=== PATIENT | male | born 1985 | race Hispanic/Latino ===

== ENCOUNTER 2017-02-17 12:49 | Emergency (ER) | payer OTHER ==
[2017-02-17 13:21] VITALS: RESP 18; O2SAT 100
--- NOTE | 2017-02-17 13:43 | ED PDOC ---
HPI: General Adult Time Seen by Provider: 02/17/17 13:27 Chief Complaint (Nursing): Medical Clearance Chief Complaint (Provider): CO exposure History Per: Patient Additional Complaint(s): 31 year old male with no past medical history presents to emergency department for evaluation status post exposure to carbon monoxide. Patient states that his noticed a bizarre odor in his home last night. He contacted electrical company and they came to home and detected carbon monoxide. The source of the CO was located and turned off. Patient was advised to come to ED for further evaluation. Patient has no acute medical complaint at this time. Past Medical History Reviewed: Historical Data, Nursing Documentation, Vital Signs Vital Signs: Last Vital Signs Temp 97.4 F L 02/17/17 16:00 Pulse 62 02/17/17 16:00 Resp 18 02/17/17 16:00 BP 123/77 02/17/17 16:00 Pulse Ox 100 02/17/17 16:00 - Medical History PMH: No Chronic Diseases - Surgical History Surgical History: No Surg Hx - Family History Family History: States: No Known Family Hx - Living Arrangements Living Arrangements: With Family - Social History Current smoker - smoking cessation education provided: No Alcohol: None Drugs: Denies - Allergies Allergies/Adverse Reactions: Allergies Allergy/AdvReac Type Severity Reaction Status Date / Time No Known Allergies Allergy Verified 02/17/17 13:18 Review of Systems ROS Statement: Except As Marked, All Systems Reviewed And Found Negative Constitutional: Positive for: Other (exposure to CO) Eyes: Negative for: Vision Change Cardiovascular: Negative for: Chest Pain Respiratory: Negative for: Shortness of Breath, SOB with Exertion Neurological: Negative for: Headache, Dizziness Physical Exam - Reviewed Nursing Documentation Reviewed: Yes Vital Signs Reviewed: Yes - Physical Exam Appears: Positive for: Well, Non-toxic, No Acute Distress Skin: Negative for: Rash Eye Exam: Positive for: Normal appearance, EOMI, PERRL Cardiovascular/Chest: Positive for: Regular Rate, Rhythm Respiratory: Positive for: Normal Breath Sounds. Negative for: Accessory Muscle Use, Rales, Rhonchi, Wheezing, Respiratory Distress Neurologic/Psych: Positive for: Alert, Oriented - ECG O2 Sat by Pulse Oximetry: 100 Pulse Ox Interpretation: Normal Medical Decision Making Medical Decision Making: Impression: CO exposure Plan: High flow oxygen ABG CO is 2.9 - slightly elevated. Case was d/w Dr. Jaimes - patient was placed on O2 for 2 hours in ED. Patient was instructed to monitor symptoms closely and return to ED at any time if acutely worse, otherwise to follow up with primary doctor in 2-3 days. Disposition - Clinical Impression Clinical Impression: Carbon monoxide exposure - Patient ED Disposition Is Patient to be Admitted: No Counseled Patient/Family Regarding: Studies Performed, Diagnosis, Need For Followup - Disposition Referrals: [facility] [Outside] Disposition: Routine/Home Disposition Time: 15:22 Condition: STABLE Additional Instructions: Follow-up with primary doctor in 2-3 days or return to emergency department any time if acutely worse Instructions: Carbon Monoxide Poisoning (ED)
[2017-02-17 14:27] LABS: ABG ALLEN TEST YES; ARTERIAL BLOOD GAS HCO3 26.9 mmol/L (21-28); ARTERIAL BLOOD GAS O2 CAPACITY 17.9 mL/dL (16-24); ARTERIAL BLOOD GAS O2 CONTENT 17.9 ML/dL (15-23); ARTERIAL BLOOD GAS PH 7.43 (7.35-7.45); ARTERIAL BLOOD GAS PO2 88 mm/Hg (80-100); ARTERIAL BLOOD HGB O2 SAT 95.1 % (95.0-98.0); CARBOXYHEMOGLOBIN 2.9 % (0.5-1.5); HHB -0.2 % (0.0-5.0); METHEMOGLOBIN 2.2 % (0.0-3.0)
[2017-02-17 16:01] VITALS: BP 123/77; PULSE 62; TEMP 97.4
== END 2017-02-17 16:12 | disposition home or self-care (01) ==
LOC: H.ER 12:49
DX: T58.91XA Toxic effect of carbon monoxide from unspecified source, accidental (unintentional), initial encounter (principal)